=== PATIENT | male | born 1960 | race Caucasian/White ===

== ENCOUNTER 2017-04-02 09:55 | Emergency (ER) | payer OTHER ==
[~2017-04-02] VITALS: Ht 172.7 cm; Wt 94.4 kg
[~2017-04-02 09:55] MED LIST: FLEXERIL10 MG PO; NAPROXEN500 MG PO; NORCO 5/3251 TABLET PO; PERCOCET 5/31 TABLET PO; PREDNISONE20 MG PO
[2017-04-02 12:58] VITALS: BP 147/86
== END 2017-04-02 13:00 | disposition home or self-care (01) ==
LOC: EME 09:55
DX: M54.42 Lumbago with sciatica, left side (principal)
CPT/HCPCS: 93971; 99281; 99284; J1100; J1885

== ENCOUNTER 2017-11-23 14:56 | Emergency (ER) | payer OTHER ==
[~2017-11-23] VITALS: Ht 172.7 cm; Wt 98.7 kg
[2017-11-23 17:18] LABS: HEMATOCRIT 42.5 % (38.0-50.0); HEMOGLOBIN 15.1 G/DL (12.5-16.6); MCH 31.7 PG (29.0-34.0); MCHC 35.5 G/DL (30.0-36.0); MCV 89.1 FL (86-99); PLATELET COUNT 292 K/uL (156-360); RBC DIS.WIDTH-CV 11.6 % (11.8-14.6); RBC DIS.WIDTH-SD 37.6 % (39-53); RED BLOOD COUNT 4.77 M/uL (4.00-5.50); WHITE BLOOD COUNT 9.2 K/uL (4.1-10.2)
[2017-11-23 17:28] LABS: CHLORIDE 107 mEq/L (99-109); SODIUM 142 mEq/L (136-147)
[2017-11-23 17:30] LABS: GLUCOSE 102 mg/dL (70-99); TOTAL PROTEIN 6.9 g/dL (6.4-8.3)
[2017-11-23 17:32] LABS: TOTAL BILIRUBIN 0.3 mg/dL (0.0-1.0)
[2017-11-23 17:34] LABS: ALKALINE PHOSPHATASE 68 IU/L (3-129); CREATININE 0.8 mg/dL (0.6-1.3); GFR ESTIMATE (CALCULATED) > 59 mL/min/ (58.99-99999)
[2017-11-23 17:35] LABS: AST (GOT) 15 IU/L (2-34); UREA NITROGEN (BUN) 12 mg/dL (9-23)
[2017-11-23 17:37] LABS: ALT (GPT) 18 IU/L (3-49)
[2017-11-23 18:51] LABS: APPEARANCE CLEAR ((CLEAR)); BILIRUBIN NEGATIVE; BLOOD NEGATIVE; COLOR YELLOW ((YELLOW)); GLUCOSE (STRIP) NEGATIVE; KETONES NEGATIVE; LEUKOCYTES NEGATIVE; NITRITE NEGATIVE; PROTEIN (STRIP) NEGATIVE; UROBILINOGEN 0.2 MG/DL (0.2-1.0)
[2017-11-23] MEDS ORDERED: VALIUM5 MG PO (19:05)
[2017-11-23] MEDS ORDERED: PERCOCET 7.51 TABLET PO (19:05)
[2017-11-23] MEDS ORDERED: OMEPRAZOLE40 M1 PO (19:05)
[2017-11-23 19:26] VITALS: BP 167/93
== END 2017-11-23 19:27 | disposition home or self-care (01) ==
LOC: EME 14:56
PROVIDERS: Physician Assistant
DX: R04.2 Hemoptysis (principal); K20.9 Esophagitis, unspecified; S30.0XXA Contusion of lower back and pelvis, initial encounter; W11.XXXA Fall on and from ladder, initial encounter; F17.200 Nicotine dependence, unspecified, uncomplicated; G89.29 Other chronic pain; E78.5 Hyperlipidemia, unspecified
CPT/HCPCS: 71260; 74177; 80053; 81003; 85027; 99281; 99285; J1885; J2405; J3010

== ENCOUNTER 2018-03-27 09:25 | Emergency (ER) | payer OTHER ==
[~2018-03-27] VITALS: Ht 172.7 cm; Wt 96.8 kg
[~2018-03-27 09:25] MED LIST changes: +OMEPRAZOLE40 M1 PO; +PERCOCET 7.51 TABLET PO; +VALIUM5 MG PO
[2018-03-27 09:31] VITALS: BP 104/85
[2018-03-27] MEDS ORDERED: OXAYDO7.5 MG PO (11:17)
== END 2018-03-27 11:35 | disposition home or self-care (01) ==
LOC: EME 09:25
DX: G89.29 Other chronic pain (principal); M54.5 Low back pain; Z76.0 Encounter for issue of repeat prescription; F17.200 Nicotine dependence, unspecified, uncomplicated
CPT/HCPCS: 99281; 99283